=== PATIENT | female | born 1995 | race Caucasian/White ===

== ENCOUNTER 2021-06-03 18:05 | Emergency (ER) | payer BC ==
[~2021-06-03] VITALS: Ht 165.1 cm; Wt 56.7 kg
[2021-06-03 18:59] VITALS: BP 130/75
--- NOTE | 2021-06-03 21:38 | NUR ---
PER ADMIT TRAVEL ACCOMMODATIONS RATERLEXI METZGER PT LEFT FACILITY AT THIS TIME. PATIENT LEFT WITHOUT BEING SEEN BY DR. SOTO. NO FURTHER CARE PROVIDED FOR PATIENT.
== END 2021-06-03 21:30 | disposition left against medical advice (07) ==
LOC: MED 18:05
DX: Z53.21 Procedure and treatment not carried out due to patient leaving prior to being seen by health care provider (principal)